=== PATIENT | male | born 2000 | race Caucasian/White ===

== ENCOUNTER → 2021-11-19 | Outpatient (CLI) | LOC: M SOG 12:49 | PROVIDERS: ATTEND Physician Assistant | DX: M79.641 Pain in right hand (principal) ==

== ENCOUNTER 2021-11-20 15:11 | Day surgery (SDC) | payer OTHER ==
[~2021-11-20] VITALS: Ht 180.3 cm; Wt 76.7 kg
[2021-11-20] MEDS ORDERED: dexameTHASONE 4 MG/ML 1ML VIAL (J1100 PER 1MG) As Ordered ONE (20:21)
[2021-11-20] MEDS ORDERED: fentaNYL 100 MCG/2 ML INJECTION As Ordered ONE ×2 (20:21→20:24)
[2021-11-20] MEDS ORDERED: propofoL 200 MG/20 ML VIAL As Ordered ONE (20:21)
[2021-11-20] MEDS ORDERED: ONDANSETRON 4MG 2ML VIAL As Ordered ONE (20:21)
[2021-11-20] MEDS ORDERED: METOCLOPRAMIDE INJ 10MG/2ML VIAL (J2765 PER 1) As Ordered ONE (20:21)
[2021-11-20] MEDS ORDERED: MIDAZOLAM INJ 2MG/2ML VIAL (J2250 PER 1MG) As Ordered ONE (20:21)
[2021-11-20] MEDS ORDERED: KETOROLAC 60MG 2ML VIAL As Ordered ONE (20:21)
[2021-11-20] MEDS ORDERED: LIDOCAINE 2% 100MG/5ML SDV (FOR ANES.) As Ordered ONE (20:21)
[2021-11-20] MEDS ORDERED: ACETAMINOPHEN 1000MG 100ML IV BTL (OFIRMEV) (J0131 PER 10MG) As Ordered ONE (20:24)
[2021-11-20] MEDS ORDERED: LR 1,000 ML IV SCH (21:10)
[2021-11-20] MEDS ORDERED: oxyCODONE 5MG TAB PO PRN (21:10)
[2021-11-20] MEDS ORDERED: ONDANSETRON 4MG 2ML VIAL IV PRN (21:10)
[2021-11-20] MEDS ORDERED: fentaNYL 100 MCG/2 ML INJECTION IV PRN (21:10)
[2021-11-20] MEDS ORDERED: BUPIVACAINE HCL 0.25% 30ML VIAL As Ordered ONE (21:11)
[2021-11-20] MEDS ORDERED: BACITRACIN OINTMENT 30GM TUBE As Ordered ONE (21:11)
[2021-11-20] MEDS ORDERED: ceFAZolin 2 GM/D5W 50 ML IV BAG (J0690 PER 500MG) As Ordered ONE (21:11)
[2021-11-20 21:48] VITALS: BP 159/82
== END 2021-11-20 22:06 | disposition home or self-care (01) ==
LOC: M SDC 15:11
PROVIDERS: ATTEND Orthopaedic Surgery Hand Surgery
DX: S62.336A Displaced fracture of neck of fifth metacarpal bone, right hand, initial encounter for closed fracture (principal)
CPT/HCPCS: 26615; 76000; J0131; J0690; J1100; J1885; J2250; J2405; J2765; J3010

== ENCOUNTER → 2021-11-20 | Outpatient (CLI) | payer OTHER ==
[~2021-11-20] MED LIST: BACITRACIN OINTMENT 30GM TUBE As Ordered ONE; BUPIVACAINE HCL 0.25% 30ML VIAL As Ordered ONE; ceFAZolin 2 GM/D5W 50 ML IV BAG (J0690 PER 500MG) As Ordered ONE
== END ==
LOC: M LABSMTC 14:30 → EDSTATUS 14:31
PROVIDERS: ATTEND Orthopaedic Surgery Hand Surgery
DX: Z11.52 Encounter for screening for COVID-19 (principal)

== ENCOUNTER → 2021-11-29 | Outpatient (CLI) | payer OTHER | LOC: M SOG 08:11 | PROVIDERS: ATTEND Orthopaedic Surgery Hand Surgery | DX: S62.339A Displaced fracture of neck of unspecified metacarpal bone, initial encounter for closed fracture (principal); W18.30XA Fall on same level, unspecified, initial encounter; Y92.009 Unspecified place in unspecified non-institutional (private) residence as the place of occurrence of the external cause ==

== ENCOUNTER → 2021-12-17 | Outpatient (CLI) | payer OTHER | LOC: M SOG 13:02 | PROVIDERS: ATTEND Orthopaedic Surgery Hand Surgery | DX: S62.336D Displaced fracture of neck of fifth metacarpal bone, right hand, subsequent encounter for fracture with routine healing (principal); Z47.89 Encounter for other orthopedic aftercare ==